=== PATIENT | male | born 2000 | race Two or more races ===

== ENCOUNTER 2025-03-21 02:29 | Emergency (ER) | payer MEDICAID, SELFPAY ==
[2025-03-21 02:30] VITALS: BMI 34.4
== END 2025-03-21 02:48 | disposition left against medical advice (07) ==
LOC: SERX 03:04
PROVIDERS: Emergency Provider Emergency Medicine
DX: Z53.21 Procedure and treatment not carried out due to patient leaving prior to being seen by health care provider (principal)